=== PATIENT | female | born 1965 | race Caucasian/White ===

== ENCOUNTER → 2016-03-20 | Day surgery (SDC) | payer BC, OTHER ==
[~2016-03-20] VITALS: Ht 165.1 cm; Wt 82.6 kg
[~2016-03-20] MED LIST: AMLO10TA2 PO; DESL5TAB4 PO; KETOROLAC 60 MG/2 ML VIAL (J1885) As Ordered ONE; LEVO137T2 PO; LIDOCAINE 2% INJ 100 MG/5 ML SDV (FOR ANES.) As Ordered ONE; LIOT5TAB PO; LOSA50TA20 PO; LR 1,000 ML IV SCH; METOCLOPRAMIDE INJ 10MG/2ML VIAL (J2765) IV PRN; MIDAZOLAM INJ 2 MG/2 ML VIAL (J2250) As Ordered ONE; NIZO2SHA TOP; OMEP20CA3 PO; ONDANSETRON 4MG/2ML VIAL (J2405) As Ordered ONE; ONDANSETRON 4MG/2ML VIAL (J2405) IV PRN; PERCOCET 5MG/325MG TAB As Ordered ONE; PERCOCET 5MG/325MG TAB PO PRN; PROPOFOL 200 MG/20 ML VIAL As Ordered ONE; ROCURONIUM BROMIDE 50 MG/5 ML VIAL As Ordered ONE; TRIA37.5 PO; UREA39CR TOP; VICO5TAB16 PO; VITA100L PO; [UNRECOGNIZED DRUG - CODE] EX; [UNRECOGNIZED DRUG - OTHER] PO; [UNRECOGNIZED DRUG - OTHER] PO; [UNRECOGNIZED DRUG - OTHER] PO; dexameTHASONE 4 MG/ML 1ML VIAL (J1100) As Ordered ONE; fentaNYL 100 MCG/2 ML INJECTION (J3010) As Ordered ONE; fentaNYL 250 MCG/5 ML INJECTION (J3010) As Ordered ONE
[2016-03-20] MEDS: fentaNYL 100 MCG/2 ML INJECTION (J3010) IV PRN ×4 (13:09→13:25)
[2016-03-20 14:30] VITALS: BP 126/74
--- NOTE | 2016-03-20 20:25 | RO ---
DATE OF PROCEDURE: 03/20/2016 PREOPERATIVE DIAGNOSIS: Pain, dysmenorrhea, menorrhagia, thickened endometrium by ultrasound, history of adhesions and bladder pain and dysuria. POSTOPERATIVE DIAGNOSIS: Pain, dysmenorrhea, menorrhagia, thickened endometrium by ultrasound, history of adhesions and bladder pain and dysuria. Adhesions confirmed. She has what appears to be a uterine fibroid and also at the fundus of the uterus a midline septum or synechiae and some polyps, samples of which were sent to pathologist. PROCEDURE: Laparoscopic, lysis of adhesions, dilation and curettage, hysteroscopy with resection of polyp and sampling of the scar or septum area and cystourethroscopy. SURGEON: Dr. Priyanka Zepeda ACCOUNTING SOFTWARE SPECIALIST: ANESTHESIA: General endotracheal anesthesia. DESCRIPTION OF PROCEDURE: Amparo was brought to the operating room where sufficient general endotracheal anesthesia was induced. She was prepped, draped and positioned in the usual sterile fashion, the bladder emptied and uterine manipulator placed. Attention was then turned to the abdomen where a transverse incision was made below the umbilicus and sharp and blunt dissection were continued through subcutaneous tissues to the level of the rectus fascia, which was elevated and secured with the #0 Vicryl retention sutures and transversely incised. The peritoneum was then entered with the S retractors. The Akbar cannula was placed and CO2 insufflation was then begun. Following adequate CO2 insufflation, the peritoneal cavity was visualized. Overall, there were shiny, normal appearing peritoneal surfaces without ascites or exudate. There were adhesions. In the left upper quadrant, there were adhesions and as you can see, as documented on the surgical photos, these are adhesions that appear to be omentum and the fat of the stomach to the anterior abdominal wall over the area of the diaphragm just below the ribcage there. Those adhesions do not alter the normal location of those organs, and they definitely were not taken down in this case, we left them be. Over the inferior abdomen, there was scarring from her previous right salpingo-oophorectomy, which was rather minimal. The left ovary is mobile. There is some scarring over the tube, but I believe she had a tubal and there did not appear to be endometriotic evidence that I could identify. In the anterior left uterus and the mid part of the corpus, there was a bulge consistent with fibroid, and this appears to be an intramural fibroid there, does not appear to be tremendously impressive in size but it was photographed. Extending on the right side of the anterior uterus, there are adhesions with some adipose in them that are tacking the bladder up, so those were taken down with the cold scissors. Much of that was filmy adhesions, so we did not need to use cautery. I did not want to risk progression of cautery to the uterine vasculature when it was possible to just lift up the scissors working through the operative port on the scope and then carefully dissect through the filmy portion of these adhesions to free the bladder where it was tented up on that right side. So, we were readily able to take that down and did not really have any significant risk of injury to the bladder and in doing that, this was relatively high up. Other than those adhesions and some minor adhesions over the descending colon, which we did take down but, again, those are quite common and did not appear to be tenting the intestine over much. Then, ended that laparoscopic portion of the procedure by allowing the CO2 to escape the abdomen and closing the wound at the fascial layer with #0 Vicryl and at the skin with #3-0 Vicryl in a subcuticular stitch with good approximation and hemostasis at each layer and dry sterile dressing was then applied and attention turned to the hysteroscopy. The uterine manipulator was removed, cervix was redilated for introduction of the hysteroscope, and it was introduced and several endometrial polyps were noted and had that fluffy texture consistent with polyp rather than fibroid and they were completely resected with the MyoSure resectoscope and this was readily accomplished. But then in the midline, there was a V-shaped what appears to be a septum. This certainly could be synechiae, it has a very symmetrical appearance and we were able to excise along the surface of it and remove endometrium and then the beginning layers of the myometrium. 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 The opening to the tubes are normal. The endocervical canal is normal. We did get some samples there as well and then we undertook curettage and the hysteroscopic portion of the procedure with the dilation and curettage and the MyoSure resection was also then completed. Attention was turned to the cystourethroscopy with the cystoscope carefully placed and the bladder filled and visualized. There were no polyps, no ulceration. There were no Hunner's lesions. There were some varicosities; these are pictured. Certainly she has a big bladder consistent with a history of childhood dilation and lifetime of use, but she had normal jets of urine, there were no specific lesions. There did appear to be a vascularity that is sometimes seen with interstitial cystitis, but is certainly not diagnostic and a few varicosities in the pelvis is not unusual in a woman. I certainly did not see any lesions or anything that needed to be biopsied. We were able to very carefully go with a little water flowing with the 70 and back out through the urethra because the patient does at times have what she describes as urethral discomfort with urination and so carefully rotating the angle of the scope, while minimizing the amount of manipulation of the actual sheathing, we were able to carefully visualize a great deal of the urethra. I found no evidence of a diverticulum by this nor by palpation under anesthesia. I saw no evidence of a urethral lesion at all. Following that, the bladder was emptied out and the procedure ended. Estimated blood loss for the procedure was maybe 20 mL. Fluid replacement was crystalloid. Complications: None. Condition and Disposition: Amparo tolerated the procedure well and was recovering in the recovery room in good condition.
== END | disposition home or self-care (01) ==
LOC: M SDC 08:13
PROVIDERS: ATTEND Obstetrics & Gynecology
DX: N94.6 Dysmenorrhea, unspecified (principal); N92.0 Excessive and frequent menstruation with regular cycle; R93.8 Abnormal findings on diagnostic imaging of other specified body structures; N73.6 Female pelvic peritoneal adhesions (postinfective); N84.0 Polyp of corpus uteri; J30.9 Allergic rhinitis, unspecified; K57.30 Diverticulosis of large intestine without perforation or abscess without bleeding; K21.9 Gastro-esophageal reflux disease without esophagitis; I10 Essential (primary) hypertension; M51.36 Other intervertebral disc degeneration, lumbar region; F17.290 Nicotine dependence, other tobacco product, uncomplicated; I83.90 Asymptomatic varicose veins of unspecified lower extremity; E55.9 Vitamin D deficiency, unspecified; J38.1 Polyp of vocal cord and larynx; E03.9 Hypothyroidism, unspecified; G89.29 Other chronic pain; M12.9 Arthropathy, unspecified; J32.9 Chronic sinusitis, unspecified; Z88.1 Allergy status to other antibiotic agents; Z79.899 Other long term (current) drug therapy; Z78.0 Asymptomatic menopausal state; Z98.51 Tubal ligation status
CPT/HCPCS: 52000; 58558; 58660; 88305; J1100; J1885; J2250; J2405; J3010

== ENCOUNTER → 2019-01-26 | Outpatient (REF) | payer OTHER ==
[~2019-01-26] MED LIST changes: -AMLO10TA2 PO; +AMLO10TA5 PO; +DESL1TAB3 PO; -DESL5TAB4 PO; -KETOROLAC 60 MG/2 ML VIAL (J1885) As Ordered ONE; -LIDOCAINE 2% INJ 100 MG/5 ML SDV (FOR ANES.) As Ordered ONE; -LIOT5TAB PO; +LIOT5TAB6 PO; +LORA-436 PO; -LOSA50TA20 PO; +LOSA50TA88 PO; -LR 1,000 ML IV SCH; -METOCLOPRAMIDE INJ 10MG/2ML VIAL (J2765) IV PRN; -MIDAZOLAM INJ 2 MG/2 ML VIAL (J2250) As Ordered ONE; +OMEP-172 PO; -OMEP20CA3 PO; -ONDANSETRON 4MG/2ML VIAL (J2405) As Ordered ONE; -ONDANSETRON 4MG/2ML VIAL (J2405) IV PRN; -PERCOCET 5MG/325MG TAB As Ordered ONE; -PERCOCET 5MG/325MG TAB PO PRN; -PROPOFOL 200 MG/20 ML VIAL As Ordered ONE; -ROCURONIUM BROMIDE 50 MG/5 ML VIAL As Ordered ONE; +UREA39LO EX; -VICO5TAB16 PO; +VICO5TAB17 PO; -[UNRECOGNIZED DRUG - CODE] EX; -[UNRECOGNIZED DRUG - OTHER] PO; -dexameTHASONE 4 MG/ML 1ML VIAL (J1100) As Ordered ONE; -fentaNYL 100 MCG/2 ML INJECTION (J3010) As Ordered ONE; -fentaNYL 250 MCG/5 ML INJECTION (J3010) As Ordered ONE
[2019-01-26 19:13] LABS: APPEARANCE, URINE CLEAR (CLEAR); BACTERIA, URINE AUTO NEGATIVE (NEGATIVE); BILIRUBIN, URINE AUTO NEGATIVE (NEGATIVE); BLOOD, URINE BLOOD NEGATIVE (NEGATIVE); COLOR, URINE COLORLESS (YELLOW); GLUCOSE, URINE (UA) AUTO NEGATIVE (NEGATIVE); KETONE, URINE AUTO NEGATIVE (NEGATIVE); LEUKOCYTE ESTERASE, URINE AUTO NEGATIVE (NEGATIVE); NITRITE, URINE AUTO NEGATIVE (NEGATIVE); PROTEIN, URINE AUTO NEGATIVE (NEGATIVE); RBC, URINE AUTO 0 /HPF (0-3); SPECIFIC GRAVITY URINE AUTO 1.003 (1.002-1.035); SQUAMOUS EPITHELIAL CELL UR AU 0 /HPF (0-6); UROBILINOGEN, URINE AUTO 0.2 mg/dL (0.0-2.0); WBC, URINE AUTO 0 /HPF (0-3)
== END ==
LOC: M LAB REF 17:17
PROVIDERS: ATTEND Nurse Practitioner Women's Health
DX: Z01.411 Encounter for gynecological examination (general) (routine) with abnormal findings (principal)

== ENCOUNTER → 2021-04-05 | Outpatient (REF) | payer OTHER ==
[~2021-04-05] MED LIST changes: -AMLO10TA5 PO; +AMLO1TAB25 PO; -LORA-436 PO; +LORA-930 PO; +LOSA50TA28 PO; -LOSA50TA88 PO; -OMEP-172 PO; +OMEP1CAP73 PO
== END ==
LOC: M LAB REF 17:18
PROVIDERS: ATTEND Dermatology
DX: L98.8 Other specified disorders of the skin and subcutaneous tissue (principal)